=== PATIENT | female | born 1950 | race Caucasian/White ===

== ENCOUNTER → 2025-02-27 11:05 | Outpatient (REF) | payer MEDICARE, OTHER, SELFPAY ==
[2025-02-27 12:46] LABS: Hematocrit 37.7 % (37.0-47.0); Hemoglobin 13.1 g/dL (12.0-16.0); Mean Corp Hgb Conc. 34.7 g/dL (33.0-37.0); Mean Corpuscular Volume 96.7 fL (81.0-99.0); Nucleated Red Blood Cells % 0 %; Red Cell Dist. Width 13.0 % (11.5-14.5)
[2025-02-27 12:52] LABS: ALT (SGPT) 11 U/L (0-35); AST (SGOT) 26 U/L (14-36); Albumin 4.0 g/dl (3.5-5.0); Alkaline Phosphatase 86 U/L (38-126); Blood Urea Nitrogen 20 mg/dl (7-17); Calcium 9.5 mg/dl (8.4-10.2); Carbon Dioxide 21 mmol/L (22-30); Chloride 109 mmol/L (98-107); Glucose 96 mg/dl (70-99); HDL Cholesterol 61 mg/dl; LDL Cholesterol, Calculated 84 mg/dl; Potassium 4.4 mmol/L (3.5-5.1); Sodium 135 mmol/L (135-145); Total Protein 6.5 g/dl (6.3-8.2); Very Low Density Lipoprotein 14 mg/dl (0-30); eGFR > 60.00
[2025-02-27 12:59] LABS: Urine Character Slightly Cloudy (Clear)
[2025-02-27 13:07] LABS: Vitamin D, 25-OH*** 46.6 ng/mL (30-80)
[2025-02-27 13:26] LABS: Urine Squamous Cell 16-20 /LPF (Few); Urine Urothelial Cell 0-2 /LPF (FEW)
[2025-02-27 13:28] LABS: Urine Red Blood Cell 0-2 /HPF (0-2)
[2025-02-27 13:29] LABS: Urine White Cell 90-100 /HPF (0-5)
[2025-02-27 13:39] LABS: Microalb - Urine Creatinine 76.400 mg/dl
[2025-02-27 13:44] LABS: Microalbumin, Random Urine 1.0 mg/dl (0.6-1.7)
[2025-02-27 14:31] LABS: Glycohemoglobin (HgbA1c) 5.3 % (4.0-5.6)
== END ==
LOC: REG 11:05
PROVIDERS: ATTENDING PHYSICIAN Student in an Organized Health Care Education/Training Program
DX: E11.9 Type 2 diabetes mellitus without complications (principal); E03.9 Hypothyroidism, unspecified; Z95.0 Presence of cardiac pacemaker; N30.10 Interstitial cystitis (chronic) without hematuria; R76.0 Raised antibody titer; I47.29 Other ventricular tachycardia; M79.2 Neuralgia and neuritis, unspecified; E66.813 Obesity, class 3; I48.0 Paroxysmal atrial fibrillation; R42 Dizziness and giddiness; I89.0 Lymphedema, not elsewhere classified; E55.9 Vitamin D deficiency, unspecified
CPT/HCPCS: 36415; 80053; 80061; 81003; 81015; 82043; 82306; 82570; 83036; 84439; 84443; 85025; 87077; 87086; 87186

== ENCOUNTER → 2025-05-10 16:02 | Outpatient (REF) | payer MEDICARE, OTHER, SELFPAY | LOC: REG 16:02 | PROVIDERS: ATTENDING PHYSICIAN Student in an Organized Health Care Education/Training Program | DX: E03.9 Hypothyroidism, unspecified (principal) | CPT/HCPCS: 36415; 84443 ==

== ENCOUNTER 2025-06-16 22:54 | Observation (INO) | payer MEDICARE, OTHER, SELFPAY ==
[2025-06-16 17:09] VITALS: BP 112/72
[2025-06-16 17:19] VITALS: BMI 42.2
--- NOTE | 2025-06-16 17:56 | ED.GENMED ---
History of Present Illness
<Jennifer Fernandes PA-C - Last Filed: 06/16/25 23:01>
General
Chief Complaint: Fall
Source: patient
Exam Limitations: none
Time Seen by Provider: 06/16/25 17:42
History of Present Illness
History of Present Illness:
75yoF with a history of atrial fibrillation not on anticoagulation and hypothyroidism presenting via EMS for evaluation after a fall about 2 hours ago. Patient has a lot of orthopedic issues at baseline including multiple prior back and knee
surgeries. She states she is 'a few years away from assisted living.' She was trying to get out of the chair today but was unable to. Her family member tried to assist her and she lost her balance and fell forward. She braced her fall with her
hands. She did not hit her head and denies loss of consciousness. She currently complains of bilateral knee pain, bilateral hip pain, and bilateral shoulder pain. She denies any headache, neck pain, chest pain, shortness of breath, abdominal
pain. She does not take any blood thinners. She ambulates with a walker at baseline.
Past History
<Jennifer Fernandes PA-C - Last Filed: 06/16/25 23:01>
Past History
ED Past Medical History: NIDDM, Hypothyroidism and Other (pulmonary Nodules, DVT, UTi, congenital bladder deformity, Pylonephritis, Lupus)
ED Past Surgical History: Cardiac (pacemaker), Cholecystectomy, Gynecological (right tube removed, Fibroid cyst removed), Orthopedic (right and left total knee, back surgery, ) and Other (Green field filter. Carotid filter)
Social History
Tobacco: Former smoker
Alcohol: Occasional
Personal: Single
Living: with family
Employment: Employed
Phy Exam
<Jennifer Fernandes PA-C - Last Filed: 06/16/25 23:01>
General Physical Exam
General Presentation: well appearing and no apparent distress
General Skin: warm and dry
General Habitus: normal, elderly and obese
General Mental: alert
ENT Exam
ENT Exam: normocephalic and other (No external signs of head trauma. No cervical spine tenderness.)
Eye Exam
Eye Exam: PERRL and conjunctiva normal
Pulmonary Exam
Pulmonary Exam: lungs clear, no respiratory distress, no rales, chest non tender, no crackles and no rhonchi
Neurological Exam
Neurological Exam: alert
Jewels Coma Scale
Eye Opening: Spontaneous
Verbal Response: Oriented
Motor Response: Obeys Commands
GCS Total Score: 15
Musculoskeletal Exam
Musculoskeletal Exam: other (No deformities noted. ROM of bilateral knees/hips decreased 2/2 pain.)
Skin Exam
Skin Exam: normal color and warm/dry
Psychiatric Exam
Psychiatric Exam: normal mood/affect
Course
<Jennifer Fernandes PA-C - Last Filed: 06/16/25 23:01>
Orders/Labs/Results
Orders:
Orders
06/16/25 17:55
CR Knee - Left 1 Or 2 Views Urgent
Reason For Exam: fall
CR Knee- Right 4 Or More View* Urgent
Comment:
Reason For Exam: fall
CR Pelvis - 1 Or 2 Views Urgent
Comment:
Reason For Exam: bilateral hip pain, fall
CR Shoulder - Left Min 2 View* Urgent
Comment:
Reason For Exam: fall
CR Shoulder - Right Min 2 View Urgent
Comment:
Reason For Exam: fall
06/16/25 20:05
CT Pelvis W/o Iv Contrast Urgent
Comment:
Reason For Exam: Bilateral hip pain after fall
06/16/25 21:[address] Non Medication Order As Directed
Physician Order: ambulation trial
Above order entered?: Yes
06/16/25 21:13
Ambulate Patient-Treatment ONCE
06/16/25 21:50
HYDROmorphone [Dilaudid] 0.5 mg IV NOW STA
06/16/25 22:06
Admit/Transfer Patient As Directed
Co-Sign Provider:
Level of Care: Observation services
Assign to:: Medical/Surgical
Physician / Group: sina
Diagnosis: ambulatory dysfunction/ fall
PRN Pain Medication Management As Directed
May give lesser potent ordered pain med per pt: Yes
preference::
Protocol:: Medication orders for pain may be administered in a
manner that supports deferring to patient preference
when the pt is:
- Requesting an ordered lesser potent pain medication.
Least to most potent pain medications are defined
as: acetaminophen < NSAID < tramadol < opioids
(morphine, oxycodone, hydromorphone).
- Requesting a lesser dose of the same medication IF
ORDERED.
- Requesting a less intrusive route of administration
if both routes are prescribed by the provider (PO <
IV).
06/16/25 22:07
Code Status As Directed
Resuscitation Status: Do not resuscitate
Reached after discussion with pt or family/Healthcare POA: Yes
DNR Bracelet Application ONCE
06/16/25 22:14
Complete Blood Count/With Diff Urgent
Comprehensive Metabolic Panel Urgent
Abnormal Lab Results
06/16/25
22:14
RBC 4.00 L 10^6/uL
(4.20-5.40)
MCH 33.5 H pg
(27.0-31.0)
MPV 12.2 H fL
(7.4-10.4)
Lymphocytes % 17.0 L %
(20.5-51.1)
Glucose 143 H mg/dl
(70-99)
06/16/25 22:14
06/16/25 22:14
Vital Signs
Initial and Last Documented VS:
Initial Vital Signs
Temp Pulse Resp BP Pulse Ox
98.4 F 88 20 112/72 99
06/16/25 17:09 06/16/25 17:09 06/16/25 17:09 06/16/25 17:09 06/16/25 17:09
Last Documented Vital Signs
Temp Pulse Resp BP Pulse Ox
98.3 F 80 16 131/74 100
06/16/25 22:46 06/16/25 22:46 06/16/25 22:46 06/16/25 22:46 06/16/25 22:46
<José Barlow, DO - Last Filed: 06/16/25 22:00>
Orders/Labs/Results
Orders:
Orders
06/16/25 17:55
CR Knee - Left 1 Or 2 Views Urgent
Reason For Exam: fall
CR Knee- Right 4 Or More View* Urgent
Comment:
Reason For Exam: fall
CR Pelvis - 1 Or 2 Views Urgent
Comment:
Reason For Exam: bilateral hip pain, fall
CR Shoulder - Left Min 2 View* Urgent
Comment:
Reason For Exam: fall
CR Shoulder - Right Min 2 View Urgent
Comment:
Reason For Exam: fall
06/16/25 20:05
CT Pelvis W/o Iv Contrast Urgent
Comment:
Reason For Exam: Bilateral hip pain after fall
06/16/25 21:[address] Non Medication Order As Directed
Physician Order: ambulation trial
Above order entered?: Yes
06/16/25 21:13
Ambulate Patient-Treatment ONCE
06/16/25 21:50
HYDROmorphone [Dilaudid] 0.5 mg IV NOW STA
06/16/25 22:06
Admit/Transfer Patient As Directed
Co-Sign Provider:
Level of Care: Observation services
Assign to:: Medical/Surgical
Physician / Group: sina
Diagnosis: ambulatory dysfunction/ fall
PRN Pain Medication Management As Directed
May give lesser potent ordered pain med per pt: Yes
preference::
Protocol:: Medication orders for pain may be administered in a
manner that supports deferring to patient preference
when the pt is:
- Requesting an ordered lesser potent pain medication.
Least to most potent pain medications are defined
as: acetaminophen < NSAID < tramadol < opioids
(morphine, oxycodone, hydromorphone).
- Requesting a lesser dose of the same medication IF
ORDERED.
- Requesting a less intrusive route of administration
if both routes are prescribed by the provider (PO <
IV).
06/16/25 22:07
Code Status As Directed
Resuscitation Status: Do not resuscitate
Reached after discussion with pt or family/Healthcare POA: Yes
DNR Bracelet Application ONCE
06/16/25 22:14
Complete Blood Count/With Diff Urgent
Comprehensive Metabolic Panel Urgent
Abnormal Lab Results
06/16/25
22:14
RBC 4.00 L 10^6/uL
(4.20-5.40)
MCH 33.5 H pg
(27.0-31.0)
MPV 12.2 H fL
(7.4-10.4)
Lymphocytes % 17.0 L %
(20.5-51.1)
Glucose 143 H mg/dl
(70-99)
06/16/25 22:14
06/16/25 22:14
Vital Signs
Initial and Last Documented VS:
Initial Vital Signs
Temp Pulse Resp BP Pulse Ox
98.4 F 88 20 112/72 99
06/16/25 17:09 06/16/25 17:09 06/16/25 17:09 06/16/25 17:09 06/16/25 17:09
Last Documented Vital Signs
Temp Pulse Resp BP Pulse Ox
98.3 F 80 16 131/74 100
06/16/25 22:46 06/16/25 22:46 06/16/25 22:46 06/16/25 22:46 06/16/25 22:46
<Jennifer Fernandes PA-C - Last Filed: 06/16/25 23:01>
MDM/Problems Addressed
Differential Diagnosis Includes:
75yoF here after a fall getting out of a chair. Multiple complaints including bilateral shoulder, hip, and knee pain. No head strike or headache. She is awake, alert, with a GCS of 15. No external signs of trauma on exam. Differential diagnosis
includes: contusion, sprain, fracture
Initial ED plan: Check bilateral shoulder x-rays, bilateral knee x-rays, and pelvic x-ray.
<Jennifer Fernandes PA-C - Last Filed: 06/16/25 23:01>
*Pulse Oximetry
SaO2: 99
Oxygen Mode of Delivery: Room air
Patient hypoxic: no
*Critical Care Note
Total Time (30-74mins, 75-104mins- exclusive of procedures): Not Applicable
<Jennifer Fernandes PA-C - Last Filed: 06/16/25 23:01>
Update Note
Update Note:
X-rays negative for fractures although L hip x-ray are obscured due to her bladder stimulator. CT pelvis added and preliminary [facility]ology report is negative for fracture. Patient attempted to ambulate with nursing staff and is requiring
significant assistance. She lives alone and family member does not feel comfortable with her going home. Will admit for PT/OT evaluations and likely rehab placement.
ED Attending Note
<Jennifer Fernandes PA-C - Last Filed: 06/16/25 23:01>
-
Portions of this chart may have been created with voice recognition software.� Occasional wrong word or��sound alike� substitutions may have occurred due to the inherent limitations of voice recognition software.
<José Barlow DO - Last Filed: 06/16/25 22:00>
ED Attending Note
Patient seen and examined by attending physician: Yes
ED Attending Note:
I have reviewed and agree with history treatment plan by Jennifer Fernandes PA-C. My exam reveals 75-year-old female with difficulty ambulation, unsafe discharge. No signs of fracture on imaging studies. Admit to hospitalist for further treatment
Discharge Plan
Departure
Patient Disposition: Admit
Date of Disposition: 06/16/25
Time of Disposition: 21:52
Presentation/result/management discussed w/ accepting MD/DO: Hospitalist
Discharge Problem:
Ground-level fall, Ambulatory dysfunction
Prescriptions:
No Action
nitrofurantoin monohyd/m-cryst 100 MG capsule
100 mg PO BID Qty: 14 0RF
phenazopyridine 100 MG tablet
100 mg PO TID Qty: 9 0RF
Patient Comments:
was taking for UTI not not for some time
cyclobenzaprine 10 MG tablet
10 mg PO DAILY AT 0700
pediatric multivitamin [Zoo Chews] 1 EACH tablet,chewable
1 ea PO
docusate sodium [Colace] 50 MG capsule
50 mg PO DAILY
levothyroxine [Synthroid] 100 MCG tablet
100 mcg PO DAILY
aspirin 1 MG tablet
325 mg PO DAILY
hydrocodone-acetaminophen 5 MG/500 MG tablet
1 tab PO .Q4-6HPRN PRN (Reason: PAIN) Qty: 20 0RF
sulfamethoxazole-trimethoprim [Bactrim DS] 800-160 mg tablet
1 tab PO BID Qty: 19 0RF
Referrals:
Brando Metcalf DO [Family Provider, Family Practice]
Discharge Date and Time
Print Language: THAI
[2025-06-16 21:02] VITALS: BP 144/77
--- NOTE | 2025-06-16 22:09 | HPS.HSE ---
Family Physician
-
Family Physician: Brando Metcalf
Chief Complaint
-
fall, joint pains
History of Present Illness
75-year-old female past medical history of atrial fibrillation not on anticoagulation, sick sinus syndrome status post pacemaker, hypertension, hypothyroidism, pulmonary nodules, obstructive sleep apnea, GERD, obesity, arthritis, nephrolithiasis,
diabetes, interstitial cystitis, presenting with fall 2 hours ago. She was trying to get out of her chair but was unable to. Her family member tried to help her and she lost her balance and fell forward. She braced her fall with her hands. She
did not hit her head and denies loss of consciousness. She complains of bilateral knee pain, bilateral hip pain and bilateral shoulder pain. Denies headache, neck pain, chest pain or shortness of with abdominal pain.
She had both knees previously replaced. A few years ago she had periprosthetic left knee and femur fracture requiring surgery.
She is a former smoker. She rarely drinks alcohol.
Medical History
Past Medical History
Past Medical History: Reports Other (atrial fibrillation not on anticoagulation, sick sinus syndrome status post pacemaker, hypertension, hypothyroidism, pulmonary nodules, obstructive sleep apnea, GERD, obesity, arthritis, nephrolithiasis,
diabetes, interstitial cystitis)
Past Surgical History: Reports Other ( Cholecystectomy, joint surgery, heart surgery, back surgeries, bilateral knee replacements, rectocele repair,)
Social History
Tobacco: Former Smoker
Alcohol: Occasional
Drug: None
Family History
Family History: Not pertinent
Allergies / Home Medications
Allergies reflects when Allergies were last updated in [employer].
Home Medications with original date entered in [employer]
Allergy/Medication List:
Allergies
Allergy/AdvReac Type Severity Reaction Status Date / Time
adhesive tape Allergy skin welts Verified 06/16/25 17:20
apixaban (From Eliquis) Allergy bleeding Verified 06/16/25 17:13
stomach
ulcer
Cephalosporins Allergy Unknown Verified 06/16/25 17:13
codeine Allergy Unknown Verified 06/16/25 17:13
diclofenac Allergy Unknown Verified 06/16/25 17:13
nickel Allergy Unknown Verified 06/16/25 17:19
NSAIDS (Non-Steroidal Allergy Unknown Verified 06/16/25 17:13
Anti-Inflamma
penicillin G Allergy Unknown Verified 06/16/25 17:13
Penicillins Allergy Unknown Verified 06/16/25 17:13
pentazocine Allergy Unknown Verified 06/16/25 17:13
warfarin (From Coumadin) Allergy lower GI Verified 06/16/25 17:13
bleed
Home Medications
nitrofurantoin monohydrate/macrocrystals 100 mg capsule 100 mg PO BID #14 caps 02/05/10
phenazopyridine 100 mg tablet 100 mg PO TID #9 tabs 02/05/10
cyclobenzaprine 10 mg tablet 10 mg PO DAILY AT 0700 01/05/11
docusate sodium 50 mg capsule (Colace) 50 mg PO DAILY 01/05/11
levothyroxine 100 mcg tablet (Synthroid) 100 mcg PO DAILY 01/05/11
pediatric multivitamin (Zoo Chews tablet) 1 ea PO 01/05/11
aspirin 325 mg tablet 325 mg PO DAILY 01/06/11
hydrocodone 5 mg-acetaminophen 500 mg tablet 1 tab PO .Q4-6HPRN PRN PAIN ##20 04/27/11
sulfamethoxazole 800 mg-trimethoprim 160 mg tablet (Bactrim DS) 1 tab PO BID Skin infection #19 tabs 09/06/22
Review of Systems
-
History Source: Patient
A 12 point ROS was completed and negative except as noted: Yes
Physical Exam
Vital Signs
Vital Signs
Temp Pulse Resp BP Pulse Ox
98.4 F 80 18 144/77 100
06/16/25 17:09 06/16/25 21:02 06/16/25 21:02 06/16/25 21:06/16/25 21:02
Physical Exam
General: Well Developed, Well Nourished and No Apparent Distress
HEENT: NormoCephalic, Moist mucous membranes and Atraumatic
Respiratory: Clear
Cardiac: S1/S2 and Regular Rhythm; No Murmur or Rub
GI: Soft, Non Tender, Non Distended and Normal Bowel Sounds; No Organomegaly
Rectal: Deferred by Provider
Musculoskeletal: No Clubbing, No Cyanosis and No Edema
Skin: No Rash
Neuro: Nonfocal/grossly intact
Data Reviewed
-
Lab Data: Labs Reviewed by me
Old Records: Reviewed
Impression/Plan
-
IMPRESSION:
PLAN:
# Ambulatory dysfunction with fall
# History of bilateral knee replacement complicated by periprosthetic left knee fracture status post revision
-Knee x-rays show no acute fracture
-Pelvic x-ray shows no fracture but proximal left femur fracture cannot be excluded
-Shoulder x-ray shows no fracture
-Pelvic CT pending to rule out femur fracture
- Tylenol, tramadol, Dilaudid for pain as needed
-CBC and BMP pending
- PT OT
Paroxysmal atrial fibrillation
- Not on anticoagulation
Sick sinus syndrome status post pacemaker
Essential hypertension
Hypothyroidism
Pulmonary nodules
Obstructive sleep apnea
GERD
Obesity
Osteoarthritis
Nephrolithiasis
Type 2 diabetes
- Noted on primary care note
Interstitial cystitis
DNR/DNI
DVT prophylaxis�Lovenox
Regular diet
[2025-06-16 22:22] LABS: Hematocrit 39.6 % (37.0-47.0); Hemoglobin 13.4 g/dL (12.0-16.0); Mean Corp Hgb Conc. 33.8 g/dL (33.0-37.0); Mean Corpuscular Volume 99.0 fL (81.0-99.0); Nucleated Red Blood Cells % 0 %; Platelet Count 143 10^3/uL (130-400); Red Cell Dist. Width 12.8 % (11.5-14.5)
[2025-06-16 22:37] LABS: ALT (SGPT) 14 U/L (0-35); AST (SGOT) 27 U/L (14-36); Albumin 4.2 g/dl (3.5-5.0); Alkaline Phosphatase 117 U/L (38-126); Blood Urea Nitrogen 17 mg/dl (7-17); Calcium 9.9 mg/dl (8.4-10.2); Carbon Dioxide 26 mmol/L (22-30); Chloride 105 mmol/L (98-107); Estimated Creatinine Clearance 73 ml/min; Glucose 143 mg/dl (70-99); Potassium 4.2 mmol/L (3.5-5.1); Sodium 137 mmol/L (135-145); Total Protein 7.3 g/dl (6.3-8.2); eGFR > 60.00
[2025-06-16 22:46] VITALS: BP 131/74
[2025-06-16] MEDS: DILAUDID 0.5 MG IV (22:48)
--- NOTE | 2025-06-16 23:12 | TRANSFER ---
Pt arrived from ED by wheelchair. Heavy assist x 2 walking into room and to hospital bed. VSS. Purewick was placed due to weakness getting OOB, and due to urinary frequency. Bed alarm in place. Call ennis within reach. Will continue to monitor.
[2025-06-16 23:17] VITALS: BP 140/71; BMI 41.3
[2025-06-16 23:52] VITALS: BMI 41.3
--- NOTE | 2025-06-17 00:08 | PTCARENOTE ---
While doing admission questions, pt states that she has a pacemaker. The pacemaker has a loop recorder, when an event happens the pt is notified by the doctor. Pt notified this RN that there have been a couple episodes of SVT, but she did not feel
anything. The only way she was aware was by a phone call. House provider TT and made aware. No new orders at this time .
[2025-06-17] MEDS: DILAUDID 0.5 MG IV ×3 (03:19→19:57)
[2025-06-17 07:00] VITALS: BP 137/64
[2025-06-17 07:21] LABS: Hematocrit 35.3 % (37.0-47.0); Hemoglobin 11.4 g/dL (12.0-16.0); Mean Corp Hgb Conc. 32.3 g/dL (33.0-37.0); Mean Corpuscular Volume 104.4 fL (81.0-99.0); Nucleated Red Blood Cells % 0 %; Platelet Count 123 10^3/uL (130-400); Red Cell Dist. Width 12.9 % (11.5-14.5)
[2025-06-17 07:53] LABS: ALT (SGPT) 12 U/L (0-35); AST (SGOT) 24 U/L (14-36); Albumin 3.3 g/dl (3.5-5.0); Alkaline Phosphatase 94 U/L (38-126); Blood Urea Nitrogen 15 mg/dl (7-17); Calcium 9.0 mg/dl (8.4-10.2); Carbon Dioxide 26 mmol/L (22-30); Chloride 108 mmol/L (98-107); Estimated Creatinine Clearance 72 ml/min; Glucose 88 mg/dl (70-99); Potassium 4.3 mmol/L (3.5-5.1); Sodium 138 mmol/L (135-145); Total Protein 5.8 g/dl (6.3-8.2); eGFR > 60.00
[2025-06-17] MEDS: DESENEX/MITRAZOL/ZEASORB 1 APPLIC TOPICAL ×2 (09:06→19:57)
--- NOTE | 2025-06-17 10:15 | W.PN.HOSP.TC ---
Today's Communication/Plan
-
Orthostatic vitals
PT/OT
Check anemia labs
Assessment / Plan
Assessment / Plan
Gen-AAOx3, NAD, morbid obesity
HEENT-NC, AT, anicteric, clear oral mm
Neck-supple
CV-reg, no M, +S1/S2
Lungs-clear B/L
Abd-soft, NT, ND
Ext-no edema
Musculoskeletal-no cyanosis, clubbing
Skin-warm and dry, scars on bilateral knees
Neuro-grossly non-focal
Psych-calm, cooperative
Ambulatory dysfunction/fall -no loss of consciousness. Suspect related to deconditioning, sedentary lifestyle, obesity, osteoarthritis.
No fractures noted on x-ray and CT. Continue analgesics. Patient states IV Dilaudid is helping. Wants to be premedicated before PT assessment. She uses as needed oral Dilaudid at home for pain.
PT/OT consulted. Patient not interested in going to SNF however, prefers to go home. Afraid that she will contracted COVID or other infections based on her previous experience.
Check orthostatics.
Uses a walker at baseline.
Thrombocytopenia -appears acute on labs from today. Unclear etiology, monitor for now.
Macrocytic anemia -appears acute on labs today. MCV 104. Previous hemoglobins have been normal. Does not appear that she received IV fluids overnight.
Can check anemia labs.
Osteoarthritis -s/p bilateral knee replacements. Complicated by subsequent periprosthetic left knee fracture, postoperative hematoma left knee. Subsequent revision of hardware.
Paroxysmal atrial fibrillation -not on chronic anticoagulation due to GI bleed, fall risk.
Sick sinus syndrome -s/p permanent pacemaker.
Essential hypertension -stable.
Hypothyroidism -continue levothyroxine.
AVTAR
GERD
Nephrolithiasis
Interstitial cystitis
Pulmonary nodules
Morbid obesity due to excess calories
Full code -discussed with patient.
Anticipated Discharge: Within 24 hours
Subjective/Interval History
-
Date of Service: June 17, 2025
Patient seen and examined. Complaining of left hip and knee pain.
Objective Data
-
Labs:
Laboratory Results
06/16/25 06/17/25
22:14 07:00
WBC 7.0 6.1
Hgb 13.4 11.4 L
Hct 39.6 35.3 L
Plt Count 143 123 L
Sodium 137 138
Potassium 4.2 4.3
Chloride 105 108 H
Carbon Dioxide 26 26
BUN 17 15
Creatinine 0.8 0.8
Glucose 143 H 88
Calcium 9.9 9.0
Total Bilirubin 1.1 1.2
AST 27 24
ALT 14 12
Alkaline Phosphatase 117 94
Vital Signs:
Vital Signs
Temp Pulse Resp BP Pulse Ox
98.1 F 78 19 137/64 98
06/17/25 07:00 06/17/25 07:00 06/17/25 07:00 06/17/25 07:00 06/17/25 07:00
I&O
06/16/25 06/17/25 06/18/25
06:59 06:59 06:59
Intake Total 480 / 480
Output Total 225 / 225
Balance 255 / 255
Review of Systems
-
History Source: Patient
All other systems: Reviewed and negative
[2025-06-17 10:57] LABS: Reticulocyte Count 1.5 % (0.4-2.8)
[2025-06-17 11:12] VITALS: BP 128/57; BP 128/69; BP 132/70; PULSE 75; PULSE 84; PULSE 96
[2025-06-17 11:17] LABS: Iron 56 ug/dl (37-170)
[2025-06-17 11:24] LABS: Total Iron Binding Capacity 223 ug/dl (265-497)
[2025-06-17 12:20] VITALS: BP 128/57; PULSE 72
[2025-06-17 13:10] LABS: Ferritin 298.0 ng/ml (11.1-264.0)
[2025-06-17 13:41] LABS: Folate > 20.0 ng/ml (2.76-20); Vitamin B12 606 pg/ml (239-931)
--- NOTE | 2025-06-17 14:32 | CM ---
Addendum entered by Kanika De Guzman RN 06/17/25 14:36:
LIRIANO letter give explained signed on chart.
Original Note:
Alert awake oriented patient who lives alone in a first floor apartment with 2 steps to enter.Pt uses a walker.Pt declined VN she will set up her own out pt PT. Will need MD script. She is independent in driving and all ADLs.
She has [facility] and [facility].
Pharmacy [facility] [address]
PCP Dr Metcalf
PLAN Home with No Needs
[2025-06-17 15:00] VITALS: BP 129/57
[2025-06-17 15:24] VITALS: BP 123/62; PULSE 65
[2025-06-17] MEDS: LOVENOX 40 MG SC (17:32)
[2025-06-17 23:00] VITALS: BP 119/69
[2025-06-18] MEDS: SYNTHROID 100 MCG PO (05:14)
[2025-06-18 06:00] VITALS: BMI 41.5
[2025-06-18 08:02] VITALS: BP 136/86
[2025-06-18] MEDS: DESENEX/MITRAZOL/ZEASORB 1 APPLIC TOPICAL (08:11)
--- NOTE | 2025-06-18 12:00 | W.PN.HOSP.TC ---
Today's Communication/Plan
-
Outpatient cbc recommended
Outpatient PT
Assessment / Plan
Assessment / Plan
Gen-AAOx3, NAD, morbid obesity
HEENT-NC, AT, anicteric, clear oral mm
Neck-supple
CV-reg, no M, +S1/S2
Lungs-clear B/L
Abd-soft, NT, ND
Ext-no edema
Musculoskeletal-chronic lymphedema noted LE
Skin-warm and dry, scars on bilateral knees
Neuro-grossly non-focal
Psych-calm, cooperative
Ambulatory dysfunction/fall -no loss of consciousness. Suspect related to deconditioning, sedentary lifestyle, obesity, osteoarthritis.
No fractures noted on x-ray and CT. Continue analgesics. Patient states IV Dilaudid is helping. Wants to be premedicated before PT assessment. She uses as needed oral Dilaudid at home for pain.
PT/OT consulted. Patient not interested in going to SNF however, prefers to go home. Afraid that she will contracted COVID or other infections based on her previous experience.
Check orthostatics.
Uses a walker at baseline.
Thrombocytopenia -appears acute on labs from admission. Unclear etiology, monitor for now. Discussed with RN patient has refused labs today. Recommend outpatient follow-up.
Macrocytic anemia - MCV 104. Previous hemoglobins have been normal. Does not appear that she received IV fluids Iron sats appropriate. B12/Folate normal. Recommended outpatient follow up-refusing labs.
Osteoarthritis -s/p bilateral knee replacements. Complicated by subsequent periprosthetic left knee fracture, postoperative hematoma left knee. Subsequent revision of hardware.
Paroxysmal atrial fibrillation -not on chronic anticoagulation due to GI bleed, fall risk.
Sick sinus syndrome -s/p permanent pacemaker.
Essential hypertension -stable.
Hypothyroidism -continue levothyroxine.
AVTAR
GERD
Nephrolithiasis
Interstitial cystitis
Pulmonary nodules
Morbid obesity due to excess calories
Full code
PT/OT recs SNF. Pt prefers to go home with outpatient Therapy.
More than 30 minutes spent in discharge including
Final examination of the patient
Summarizing hospital stay
Instructions for continuing care to all relevant caregivers
Preparation of discharge records, prescriptions, and referral forms
Total time spent (in minutes): 52
Anticipated Discharge: Today
Subjective/Interval History
-
Date of Service: June 18, 2025
states she is feeling better
able to ambulate more and get off the toilet with much ease
Objective Data
-
Labs:
Laboratory Results
06/18/25
06:00
WBC Pending
Hgb Pending
Hct Pending
Plt Count Pending
Vital Signs:
Vital Signs
Temp Pulse Resp BP Pulse Ox
97.4 F 73 16 136/86 95
06/18/25 08:02 06/18/25 08:02 06/18/25 08:02 06/18/25 08:02 06/18/25 08:02
I&O
06/17/25 06/18/25 06/19/25
06:59 06:59 06:59
Intake Total 480 / 480 1500 / 1500
Output Total 225 / 225
Balance 255 / 255 1500 / 1500
--- NOTE | 2025-06-18 12:06 | W.DCSUMMARY ---
Discharge Summary
Discharge Data
Date of Admission: 06/16/25
Date of Discharge: 06/18/25
-
Pending Results: No
Hospital Course
75-year-old female past medical history of atrial fibrillation not on anticoagulation, sick sinus syndrome status post pacemaker, hypothyroidism, pulmonary nodules, sleep apnea, morbid obesity, lymphedema presented with fall. Patient had a fall but
denies any loss of consciousness. Upon admission patient underwent knee x-ray which was negative for fracture. Pelvic imaging negative for femur fracture on CAT scan. Shoulder shows no fracture. Patient was started on pain medication while in
hospital. Patient was found to have mild anemia and thrombocytopenia. Patient was seen by physical and Occupational Therapy who recommended rehab. Patient says she wants to go home with outpatient therapy as she states she is feeling better and
walking with walker with much better ability. Patient refused further blood work. Recommend outpatient primary care doctor follow-up for anemia and thrombocytopenia.
Discharge Plan
-
Patient Disposition: Home with Home Care
Discharge Diagnosis/Procedures: Amatory dysfunction
Fall
Thrombocytopenia
Macrocytic anemia
Condition: Fair
Diet: Regular
Activity: With assistance and As tolerated
Blood Work: Recommend CBC in 5 to 7 days via primary doctor for anemia and thrombocytopenia follow-up.
Other Services: PT
Referrals:
Brando Metcalf, [Family Provider, Family Practice] - in less than 1 week
Prescriptions:
New
acetaminophen 325 mg Tablet
650 mg PO Q4HPRN PRN (Reason: pain) Qty: 20 0RF
Continued
levothyroxine [Synthroid] 100 MCG tablet
100 mcg PO DAILY
Discharge Orders:
Discharge Patient (As Directed); Ordered 06/18/25
Ordered By: Kike Robbins
Discharge Date and Time
Print Language: TURKMEN
--- NOTE | 2025-06-18 12:15 | CM ---
Pt is cleared for discharge to home today; no identified needs. Kathleen's sister will provide transport home.
[2025-06-18 14:49] VITALS: BP 125/64
== END 2025-06-18 15:16 | disposition home or self-care (01) ==
LOC: 3 WEST ACU 22:54
PROVIDERS: Physician Assistant; ADMITTING PHYSICIAN Hospitalist; ATTENDING PHYSICIAN Hospitalist; EMERGENCY PHYSICIAN Emergency Medicine; FAMILY PHYSICIAN Family Medicine
DX: R26.2 Difficulty in walking, not elsewhere classified (principal); M25.552 Pain in left hip; M25.551 Pain in right hip; M25.561 Pain in right knee; M25.512 Pain in left shoulder; M25.511 Pain in right shoulder; M25.562 Pain in left knee; E03.9 Hypothyroidism, unspecified; I48.0 Paroxysmal atrial fibrillation; R91.8 Other nonspecific abnormal finding of lung field; I10 Essential (primary) hypertension; G47.33 Obstructive sleep apnea (adult) (pediatric); K21.9 Gastro-esophageal reflux disease without esophagitis; E11.9 Type 2 diabetes mellitus without complications; M85.80 Other specified disorders of bone density and structure, unspecified site; M19.011 Primary osteoarthritis, right shoulder; M19.012 Primary osteoarthritis, left shoulder; E66.01 Morbid (severe) obesity due to excess calories; D69.6 Thrombocytopenia, unspecified; D53.9 Nutritional anemia, unspecified; I89.0 Lymphedema, not elsewhere classified; W01.0XXA Fall on same level from slipping, tripping and stumbling without subsequent striking against object, initial encounter; Y93.89 Activity, other specified; Y92.009 Unspecified place in unspecified non-institutional (private) residence as the place of occurrence of the external cause; Z86.718 Personal history of other venous thrombosis and embolism; Z87.440 Personal history of urinary (tract) infections; Z87.891 Personal history of nicotine dependence; Z90.49 Acquired absence of other specified parts of digestive tract; Z95.0 Presence of cardiac pacemaker; Z96.653 Presence of artificial knee joint, bilateral; Z66 Do not resuscitate; Z79.82 Long term (current) use of aspirin; Z79.890 Hormone replacement therapy; Z87.442 Personal history of urinary calculi; Z88.6 Allergy status to analgesic agent; Z88.1 Allergy status to other antibiotic agents; Z88.5 Allergy status to narcotic agent; Z88.0 Allergy status to penicillin; Z88.8 Allergy status to other drugs, medicaments and biological substances; Z91.048 Other nonmedicinal substance allergy status; Z68.41 Body mass index [BMI] 40.0-44.9, adult; Z60.2 Problems related to living alone; Z91.81 History of falling
CPT/HCPCS: 72170; 72192; 73030; 73560; 73564; 80053; 82607; 82728; 82746; 83540; 83550; 85025; 85045; 96374; 97110; 97162; 97166; 99285; G0378

== ENCOUNTER → 2025-06-22 16:46 | Outpatient (REF) | payer MEDICARE, OTHER, SELFPAY ==
[2025-06-22 17:42] LABS: Hematocrit 39.9 % (37.0-47.0); Hemoglobin 13.4 g/dL (12.0-16.0); Mean Corp Hgb Conc. 33.6 g/dL (33.0-37.0); Mean Corpuscular Volume 101.5 fL (81.0-99.0); Nucleated Red Blood Cells % 0 %; Platelet Count 162 10^3/uL (130-400); Red Cell Dist. Width 12.7 % (11.5-14.5)
== END ==
LOC: REG 16:46
PROVIDERS: ATTENDING PHYSICIAN Family Medicine
DX: R79.89 Other specified abnormal findings of blood chemistry (principal)
CPT/HCPCS: 36415; 85025